=== PATIENT | female | born 1945 | race African-American/Black ===

== ENCOUNTER → 2016-09-05 | Day surgery (SDC) | payer MEDICARE, OTHER ==
[~2016-09-05] MED LIST: AZOR 10-20 MG1 UDTAB PO; CERTAGEN PO; EC-NAPROSYN500 MG PO; HYDROCODON-ACE1 EA12 PO; HYDROCODON-ACE1 EAC7 PO; LODINE PO; LOTREL 10/20 MG1 CAP PO; MELATONIN5 M1 PO; METOPROLOL SUCC25 MG PO; NAPROSYN500 MG PO; NORVASC10 MG PO; PRAVACHOL PO; PRAVACHOL80 MG PO; TIZANIDINE HCL4 M1 PO; TOPROL XL50 MG PO
--- NOTE | ~2016-09-05 | OR ---
Unit #: [id number] #: [id number] Patient: MAURY JOHNSON [id number] [address] [address] [id number] MR#: [id number] NAME: MAURY JOHNSON ROOM: Date of Procedure: 09/05/2016 Admission Date: 09/05/2016 Surgeon: Sky Hawthorne M.D. : 1945 Attending Physician: Sky Hawthorne M.D. Primary Care Physician: Titus Luna Sr., M.D. OPERATIVE REPORT JOB NOTE: CC: [facility] PREOPERATIVE DIAGNOSES Back pain, radiculopathy, degenerative disk disease, spinal stenosis, spondylolisthesis. POSTOPERATIVE DIAGNOSES Back pain, radiculopathy, degenerative disk disease, spinal stenosis, spondylolisthesis. PROCEDURE PERFORMED Lumbar epidural steroid injection with fluoroscopic guidance for needle localization. INDICATIONS FOR PROCEDURE The patient is a 71-year-old female with return of back and left lower extremity pain due to multilevel multifactorial nonsurgical degenerative disk and spine disease with neuroforaminal and central stenosis. DESCRIPTION OF PROCEDURE The patient was placed in a seated position. Standard monitors were applied. Sterile prep and drape of the lumbar area was performed. The skin then at the L4-L5 level was localized with 1% lidocaine. An 18-gauge LX [place] needle was then advanced via loss of resistance technique and fluoroscopic guidance in toward the epidural space. After confirming proper needle tip positioning with fluoroscopy and radiographic contrast, dose of 80 mg of Depo-Medrol and 4 mL of preservative-free normal saline were deposited. The patient tolerated the procedure otherwise well and was discharged to recovery room in stable condition. Dictated by... Vinnie Bowens/errol TD: 09/06/2016 00:29 JOB #: [id number] Unit #: [id number] #: [id number] Patient: MAURY JOHNSON OPERATIVE REPORT Page 1 of 1 X Sky Hawthorne MD X PROCEDURE OPERATIVE NOTE
== END | disposition home or self-care (01) ==
LOC: CCSC 08:37
PROVIDERS: Pain Medicine Pain Medicine
PROC: 3E0S3BZ Introduction of Anesthetic Agent into Epidural Space, Percutaneous Approach (ICD-10-PCS; 2016-09-05)
PROC: 3E0S33Z Introduction of Anti-inflammatory into Epidural Space, Percutaneous Approach (ICD-10-PCS; principal; 2016-09-05 09:15)
DX: M51.16 Intervertebral disc disorders with radiculopathy, lumbar region (principal); M43.16 Spondylolisthesis, lumbar region; M48.06 Spinal stenosis, lumbar region; I10 Essential (primary) hypertension; Z79.899 Other long term (current) drug therapy; Z79.1 Long term (current) use of non-steroidal anti-inflammatories (NSAID)
CPT/HCPCS: J1040; J2250